=== PATIENT | female | born 1965 | race Caucasian/White ===

== ENCOUNTER 2019-05-02 09:30 | Day surgery (SDC) | payer OTHER ==
[2019-04-30 10:26] LABS: HEMATOCRIT 42.4 % (36.0-48.0); HEMOGLOBIN 13.7 g/dL (12-16); MCHC 32.3 g/dL (31.0-37.0); MCV 95.9 fL (80.0-100.0); MEAN PLATELET VOLUME 9.3 fL (7.4-10.4); RBC 4.42 10x6/uL (4.00-5.40); RDW 13.3 % (11.5-14.5); WBC 7.3 10x3/uL (4.8-10.8)
[~2019-05-02] VITALS: Ht 170.2 cm; Wt 117.0 kg
[~2019-05-02 09:30] MED LIST: MULTIPLE VITAMI1 TA1 PO; NP THYROID90 MG PO; TIROSINT88 MCG PO; VITAMIN B-1250 MCG PO; VITAMIN D10000 UNI1 PO; WELLBUTRIN75 MG PO
[2019-05-02 09:54] VITALS: BP 133/67; Ht 170.2 cm; Wt 117.0 kg
[2019-05-02] MEDS ORDERED: HYDROCODON-ACE1 EA10 PO (12:17)
--- NOTE | 2019-05-02 13:52 | NUR ---
DR ALBERTO NOTIFIED AND REVIEWED PT'S BEHAVIOR AND ASSESSMENT RESULTS. PT IS A LOW RISK. RESOURCES GIVEN AND SHE VERBALIZES UNDERSTANDING.
--- NOTE | 2019-05-06 08:43 | OP ---
PATIENT NAME: SOSA BONILLA MEDICAL RECORD: [id number] :65 LOCATION:[facility] ADMISSION DATE: SURGEON: ALMAS BALL MD DATE OF OPERATION: 05/02/2019 PREOPERATIVE DIAGNOSIS: Lateral meniscus tear of the right knee. POSTOPERATIVE DIAGNOSIS: Lateral meniscus tear of the right knee. PROCEDURE: Arthroscopic partial lateral meniscectomy. SURGEON: Almas Ball MD ANESTHESIA: General. INTRAOPERATIVE COMPLICATIONS: None. SUMMARY OF PATHOLOGIC FINDINGS: The patient did have some chondromalacia findings, more punctate in nature based on the lateral meniscus tear. 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 The meniscus was amenable to debridement without having to fixation. The lateral meniscus was firmly adhered on each side of the popliteal fossa; however, the meniscal tear proceeded from just lateral to the meniscal root to just lateral to the popliteal fossa. OPERATIVE SUMMARY IN DETAIL: After obtaining the appropriate preoperative orthopedic surgery consent as well as anesthetic consultation, evaluation and clearance, the patient was brought to the operating room and placed on the operating table in a supine position. After general laryngeal mask airway was administered, tourniquet was placed about the proximal aspect of the right lower extremity. Right lower extremity was then prepped and draped in routine sterile fashion. The leg was elevated and exsanguinated, tourniquet was inflated to 350 mmHg. At this point, the patient's unique identifiers were used for a timeout. These were agreed upon by all in the operative suite. Inferolateral portal was created by superomedial portal and inferomedial portal. Diagnostic arthroscopy showed the patient to have a pristine medial compartment as well as a pristine patellofemoral compartment; however, in the lateral compartment, the patient had a complex tear to the posterior horn of the lateral meniscus as described above. A combination of 3.5 full radius resector as well as a meniscotome were utilized to debride this meniscus back to stable meniscal elements. At this point, the nerve hook was then placed and the meniscus was checked to make sure that it did not sublux further than the equator of the lateral femoral condyle. Again, there was some attritional changes of the lateral femoral condyle, minimal at best, maybe grade I or grade II. Having completed this, the knee was insufflated with 40 cc of Depo-Medrol and 30 mg of 0.25% Marcaine with epinephrine. The arthroscopy portals were closed in routine interrupted fashion with 4-0 Prolene by JUAN Zimmer. Sterile dressings were applied. The patient was awakened and taken to the recovery room in stable condition. All final needle and sponge counts were correct. TRANSINT:[id number] Voice Confirmation ID: [id number] DOCUMENT ID: [id number] OPERATIVE REPORT [id number] SOSA BONILLA MD, ALMAS STARR at 0843 CC: [id number] DICTATION DATE: 05/03/19 0940 DIVISION ENGINEER: 05/03/19 1328 DEP [facility] [place] 05/02/19 [facility] [address] [place] [address]
== END 2019-05-02 14:25 | disposition home or self-care (01) ==
LOC: D.OPS 09:30 → D.PAN 11:45 → D.OPS 11:45 → D.PAN 15:45 → D.OPS 15:45 → D.PAN 19:20
PROVIDERS: Anesthesiology; ATTEND Orthopaedic Surgery
DX: S83.271A Complex tear of lateral meniscus, current injury, right knee, initial encounter (principal); X58.XXXA Exposure to other specified factors, initial encounter; M25.561 Pain in right knee

== ENCOUNTER 2019-10-17 15:08 | Outpatient (CLI) | payer OTHER ==
[2019-05-02 09:54] VITALS: BMI 40.5
[~2019-10-17 15:08] MED LIST changes: +HYDROCODON-ACE1 EA10 PO
== END 2019-10-17 23:59 | disposition home or self-care (01) ==
LOC: D.MAMMO 15:08
PROVIDERS: ATTEND Emergency Medicine
DX: Z12.31 Encounter for screening mammogram for malignant neoplasm of breast (principal)

== ENCOUNTER → 2019-11-12 06:16 | Day surgery (SDC) | payer OTHER ==
[~2019-11-12] VITALS: Ht 170.2 cm; Wt 115.0 kg
[~2019-11-12 06:16] MED LIST changes: +FEXOFENADINE H180 MG PO; +GLUCOPHAGE500 MG PO
[2019-11-12 06:35] LABS: HEMATOCRIT 42.8 % (36.0-48.0); MCH 31.3 pg (26.0-34.0); MCHC 32.7 g/dL (31.0-37.0); MCV 95.5 fL (80.0-100.0); MEAN PLATELET VOLUME 9.1 fL (7.4-10.4); RBC 4.48 10x6/uL (4.00-5.40); RDW 13.2 % (11.5-14.5); WBC 6.9 10x3/uL (4.8-10.8)
[2019-11-12 06:45] VITALS: BP 136/66; Ht 170.2 cm; Wt 115.0 kg
--- NOTE | 2019-11-12 13:00 | NUR ---
1250 DISCHARGED HOME. TAKEN OUT VIA W/C AND ASSISTED TO CAR WITH . ADVISED TO CALL OR COME BACK IF ANY PROBLEMS.
--- NOTE | 2019-11-13 12:32 | OP ---
PATIENT NAME: SOSA BONILLA MEDICAL RECORD: [id number] :65 LOCATION:[facility] ADMISSION DATE: SURGEON: WILMER ROBLERO MD DATE OF OPERATION: 11/12/2019 PREOPERATIVE DIAGNOSIS: Desires screening colonoscopy. POSTOPERATIVE DIAGNOSIS: Desires screening colonoscopy with inadequate colonic prep. PROCEDURE: Total colonoscopy to cecum. SURGEON: Wilmer Roblero MD WARP TYING MACHINE TENDER: None. BLOOD LOSS: Minimal. ANESTHESIA: IV sedation. COMPLICATIONS: None. The risks, possible complications and alternatives to the procedure were explained to the patient. She elects to proceed. ENDOSCOPIC COURSE: The patient was conveyed to endoscopy suite electively on 11/12/2019. IV sedation was induced by the anesthesia staff. The patient was placed in the Wallace position. A digital rectal examination was performed. A colonoscope was inserted through the anus. It was easily advanced to the cecum. The prep was inadequate. I slowly withdrew the endoscope. The pullback was greater than a 12-minute pullback. I irrigated and aspirated extensively. I dragged the folds. A combination of normal imaging and narrow band imaging were utilized. A retroflexed view was obtained in the rectum. I then unretroflexed the scope and removed it under direct vision. Due to the inadequate colonic prep, I am going to plan for a 2-day prep and I would like to bring her back for another colonoscopy in 2 years. TRANSINT:[id number] Voice Confirmation ID: [id number] DOCUMENT ID: [id number] WILMER ROBLERO MD at 1232 CC: NANCY VIDAL [id number] DICTATION DATE: 11/12/19 1213 SASH INSTALLER: 11/12/197 [facility] 11/12/19 [facility] [address] [place] [id number]
== END | disposition home or self-care (01) ==
LOC: D.OPS 06:16
PROVIDERS: Anesthesiology; ATTEND Surgery
DX: Z12.11 Encounter for screening for malignant neoplasm of colon (principal)

== ENCOUNTER 2019-11-15 18:46 | Emergency (ER) | payer OTHER ==
[~2019-11-15] VITALS: Ht 170.2 cm; Wt 113.6 kg
[2019-11-15 19:21] VITALS: Ht 170.2 cm; Wt 113.6 kg
[2019-11-15 20:04] LABS: BASOPHILS 0.3 % (0-2); EOSINOPHILS 1.2 % (0-7); HEMATOCRIT 43.1 % (36.0-48.0); IMMATURE GRANULOCYTES 0.2 % (0-5); LYMPHOCYTES 30.5 % (15-50); MCH 30.9 pg (26.0-34.0); MCHC 32.5 g/dL (31.0-37.0); MCV 95.1 fL (80.0-100.0); MEAN PLATELET VOLUME 9.6 fL (7.4-10.4); MONOCYTES 12.7 % (2-11); NEUTROPHILS 55.1 % (40-80); PLATELET COUNT 327 10x3/uL (130-400); RBC 4.53 10x6/uL (4.00-5.40); RDW 13.5 % (11.5-14.5); WBC 5.8 10x3/uL (4.8-10.8)
[2019-11-15 20:14] LABS: CALC OSMOLALITY 269 mosm/kg (275-300); CALCIUM 8.8 mg/dL (8.5-10.1); CARBON DIOXIDE 25.6 mmol/L (21.0-32.0); CHLORIDE - SERUM 99 mmol/L (98-107); CREATININE - SERUM 1.2 mg/dL (0.6-1.3); GLUCOSE 167 mg/dL (74-106); SODIUM 133 mmol/L (136-145); UREA NITROGEN 13 mg/dL (7-18); eGFR NON AFRICAN AMERICAN 50 mL/min (90-120)
[2019-11-15 20:29] LABS: ALBUMIN 3.5 g/dL (3.4-5.0); ALKALINE PHOSPHATASE 80 U/L (30-120); ALT (SGPT) 35 U/L (10-68); CKMB 0.1 U/L (0.0-3.6); CREATINE KINASE 92 UL (21-215); PRO BNP 14 pg/mL (0-125); PROTEIN - SERUM 7.9 g/dL (6.4-8.2); TROPONIN-I < 0.017 ng/mL (0.000-0.060)
[2019-11-15 20:31] LABS: APTT 27.4 SECONDS (22.8-39.4); INR 0.99 (0.85-1.17); PROTIME 13.1 SECONDS (11.6-15.0)
[2019-11-15 21:00] LABS: BILIRUBIN NEGATIVE (NEGATIVE); KETONE NEGATIVE (NEGATIVE); NITRITE NEGATIVE (NEGATIVE); UROBILINOGEN NORMAL mg/dL (< 2)
[2019-11-15 23:07] VITALS: BP 104/54
== END 2019-11-15 23:05 | disposition home or self-care (01) ==
LOC: D.ER 18:46
PROVIDERS: Family Medicine
DX: R06.00 Dyspnea, unspecified (principal); F41.9 Anxiety disorder, unspecified; E11.9 Type 2 diabetes mellitus without complications; Z79.84 Long term (current) use of oral hypoglycemic drugs; K21.9 Gastro-esophageal reflux disease without esophagitis